=== PATIENT | female | born 1960 | race African-American/Black ===

== ENCOUNTER → 2017-02-16 | Outpatient (CLI) | payer MEDICAID ==
[~2017-02-16] MED LIST: ACCUPRIL5MGTAB PO; ACTIGALL 300MG300 MG PO; BUSPAR DIVIDOSE15 MG PO; CLARITIN 1010 MG/TAB PO; LOPRESSOR 550 MG/TAB PO; MULTIVITAMIN FO1 CAP PO; NEURONTIN300 MG/CAP PO; NITROSTAT0.4 MG/TAB SL; NORVASC 5MG5 MG/TAB PO; PHENERGAN W/CO120 ML PO; PRIL40 PO; SEROQUEL XR150 MG PO; TOPAMAX 25MG25 M1 PO; ULTRAM 50MG TAB50 MG PO; VERAMYST27.5 MCG/A NS; XALATAN EYE DROPS OU
== END ==
LOC: COL.RAD 02-12 09:30
DX: K80.80 Other cholelithiasis without obstruction (principal); Z96.643 Presence of artificial hip joint, bilateral
CPT/HCPCS: Q9967

== ENCOUNTER → 2022-05-16 | Outpatient (CLI) | payer MEDICAID ==
[~2022-05-16] VITALS: Ht 170.2 cm; Wt 66.7 kg
[~2022-05-16] MED LIST changes: +ASPIRIN E.C. 8181 MG PO; +HYGROTON 2525 MG/TAB; +PLETAL50 MG PO; +PROTONIX 40MG T40 MG PO; +RT ADVAIR 228 DISKUS IH; +TOPROL XL 50MG50 MG PO
[2022-05-16 11:05] VITALS: BP 146/86; PULSE 73; TEMP 98.2
[2022-05-16 12:34] VITALS: BP 155/94; PULSE 75
[2022-05-16 12:39] VITALS: BP 190/91; PULSE 113
[2022-05-16 12:40] VITALS: BP 158/92; PULSE 106
[2022-05-16 12:41] VITALS: BP 162/89; PULSE 94
[2022-05-16 12:42] VITALS: BP 146/82; PULSE 94
== END ==
LOC: COL.CARD 10:26
DX: R06.02 Shortness of breath (principal); R94.39 Abnormal result of other cardiovascular function study
CPT/HCPCS: A9500; J2785